=== PATIENT | female | born 1975 | race Caucasian/White ===

== ENCOUNTER 2018-04-27 01:56 | Inpatient (IN) | payer BC ==
[~2018-04-27] VITALS: Ht 170.2 cm; Wt 137.0 kg
--- NOTE | 2018-04-27 03:22 | PHYS DOC ---
Past Medical History Past Medical History: Hypothyroid Past Surgical History: Other Additional Past Surgical Histo: RIGHT ANKLE Alcohol Use: Rarely Drug Use: None Adult General Chief Complaint Chief Complaint: ABDOMINAL PAIN HPI HPI Patient is a 42-year-old female who presents with complaint of midline abdominal pain that started on Friday. Patient states that at first she thought maybe was just gas but pain is progressively gotten worse. Patient states that she started having nausea and vomiting last night. She states that her last bowel movement was last night but states that she had to take a laxative to have a bowel movement. Currently she rates her pain to be a 10 out of 10, stating that this is the worst pain she has ever had. She does indicate that the pain radiates into her back at times. Patient states that pain is a little bit improved when she gets up and bends over at the waist. She states that otherwise nothing else improves the pain. She indicates the pain is worsened with lying down flat and palpating her abdomen. She does indicate that she has had decrease in appetite. Review of Systems Review of Systems Constitutional: Denies fever or chills [] Respiratory: Denies cough or shortness of breath [] Cardiovascular: No additional information not addressed in HPI [] GI: Complains of abdominal pain with nausea and vomiting.[] : Denies dysuria or hematuria [] Musculoskeletal: Complains of intermittent back pain[] All other systems were reviewed and found to be within normal limits, except as documented in this note. Current Medications Current Medications Current Medications Medications (Trade) Dose Ordered Sig/Becky Start Time Stop Time Status Last Admin Dose Admin Fentanyl Citrate (Fentanyl 2ml Vial) 50 mcg 1X ONCE 04/27/18 03:30 04/27/18 03:31 DC 04/27/18 03:26 50 MCG Hydromorphone HCl (Dilaudid) 1 mg 1X ONCE 04/27/18 05:00 04/27/18 05:01 DC 04/27/18 04:45 1 MG Info (CONTRAST GIVEN -- Rx MONITORING) 1 each PRN DAILY PRN 04/27/18 04:45 04/29/18 04:44 Iohexol (Omnipaque 300 Mg/ml) 75 ml 1X ONCE 04/27/18 05:00 04/27/18 05:01 DC 04/27/18 04:52 75 ML Ondansetron HCl (Zofran) 4 mg 1X ONCE 04/27/18 05:00 04/27/18 05:01 DC 04/27/18 04:46 4 MG Prochlorperazine Edisylate (Compazine) 10 mg 1X ONCE 04/27/18 05:45 04/27/18 05:46 UNV Sodium Chloride 1,000 ml @ 1,000 mls/hr Q1H 04/27/18 03:30 04/27/18 04:29 DC 04/27/18 03:26 1,000 MLS/HR Allergies Allergies Allergies Coded Allergies Type Severity Reaction Last Updated Verified Penicillins Allergy Intermediate 04/27/18 Yes Physical Exam Physical Exam Constitutional: Well developed, well nourished, in mild distress. [] HENT: Normocephalic, atraumatic, bilateral external ears normal, oropharynx moist, no oral exudates, nose normal. [] Eyes: PERRLA, EOMI, conjunctiva normal, no discharge. [] Neck: Normal range of motion, no tenderness, supple, no stridor. [] Cardiovascular:Heart rate regular rhythm [] Lungs & Thorax: Bilateral breath sounds clear to auscultation [] Abdomen: Bowel sounds diminished, abdomen soft with diffuse tenderness. Patient does have rebound tenderness. [] Skin: Warm, dry, no erythema, no rash. [] Extremities: No tenderness, no cyanosis, no clubbing, ROM intact, no edema. [] Neurologic: Alert and oriented X 3, normal motor function, normal sensory function, no focal deficits noted. [] Current Patient Data Vital Signs Vital Signs Date Time Temp Pulse Resp B/P (MAP) Pulse Ox O2 Delivery O2 Flow Rate FiO2 04/27/18 04:45 18 98 Room Air 04/27/18 02:31 97.5 94 141/85 (103) 97.5 Lab Values Laboratory Tests Test 04/27/18 02:00 04/27/18 02:15 04/27/18 03:10 Urine Collection Type Unknown Urine Color Yellow Urine Clarity Clear Urine pH 6.0 Urine Specific [place] 1.020 Urine Protein Negative mg/dL (NEG-TRACE) Urine Glucose (UA) Negative mg/dL (NEG) Urine Ketones (Stick) 15 mg/dL (NEG) Urine Blood Large (NEG) Urine Nitrite Negative (NEG) Urine Bilirubin Negative (NEG) Urine Urobilinogen Dipstick 0.2 mg/dL (0.2 mg/dL) Urine Leukocyte Esterase Negative (NEG) Urine RBC 6-10 /HPF (0-2) Urine WBC Occ /HPF (0-4) Urine Squamous Epithelial Cells Few /LPF Urine Bacteria Few /HPF (0-FEW) Urine Mucus Mod /LPF POC Urine HCG, Qualitative Hcg negative (Negative) White Blood Count 12.2 x10^3/uL (4.0-11.0) H Red Blood Count 4.42 x10^6/uL (3.50-5.40) Hemoglobin 13.6 g/dL (12.0-15.5) Hematocrit 38.5 % (36.0-47.0) Mean Corpuscular Volume 87 fL (79-100) Mean Corpuscular Hemoglobin 31 pg (25-35) Mean Corpuscular Hemoglobin Concent 35 g/dL (31-37) Red Cell Distribution Width 12.7 % (11.5-14.5) Platelet Count 234 x10^3/uL (140-400) Neutrophils (%) (Auto) 81 % (31-73) H Lymphocytes (%) (Auto) 11 % (24-48) L Monocytes (%) (Auto) 7 % (0-9) Eosinophils (%) (Auto) 1 % (0-3) Basophils (%) (Auto) 0 % (0-3) Neutrophils # (Auto) 9.9 x10^3uL (1.8-7.7) H Lymphocytes # (Auto) 1.3 x10^3/uL (1.0-4.8) Monocytes # (Auto) 0.9 x10^3/uL (0.0-1.1) Eosinophils # (Auto) 0.1 x10^3/uL (0.0-0.7) Basophils # (Auto) 0.1 x10^3/uL (0.0-0.2) Sodium Level 137 mmol/L (136-145) Potassium Level 3.8 mmol/L (3.5-5.1) Chloride Level 102 mmol/L (98-107) Carbon Dioxide Level 25 mmol/L (21-32) Anion Gap 10 (6-14) Blood Urea Nitrogen 16 mg/dL (7-20) Creatinine 0.8 mg/dL (0.6-1.0) Estimated GFR (Cockcroft-Gault) 78.3 BUN/Creatinine Ratio 20 (6-20) Glucose Level 121 mg/dL (70-99) H Calcium Level 9.5 mg/dL (8.5-10.1) Total Bilirubin 0.5 mg/dL (0.2-1.0) Aspartate Amino Transferase (AST) 17 U/L (15-37) Alanine Aminotransferase (ALT) 22 U/L (14-59) Alkaline Phosphatase 86 U/L (46-116) Total Protein 8.4 g/dL (6.4-8.2) H Albumin 3.6 g/dL (3.4-5.0) Albumin/Globulin Ratio 0.8 (1.0-1.7) L Lipase 118 U/L (73-393) Laboratory Tests 04/27/18 03:10 Laboratory Tests 04/27/18 03:10 EKG EKG [] Radiology/Procedures Radiology/Procedures [] Impressions: CT of the abdomen and pelvis demonstrates findings consistent with acute appendicitis. Course & Med Decision Making Course & Med Decision Making Pertinent Labs and Imaging studies reviewed. (See chart for details) [] Dragon Disclaimer Dragon Disclaimer This electronic medical record was generated, in whole or in part, using a voice recognition dictation system. Departure Departure Impression: Primary Impression: Acute appendicitis Disposition: 09 ADMITTED INPATIENT Admitting Physician: Other Condition: IMPROVED Referrals: UNKNOWN PCP NAME (PCP) Problem Qualifiers Primary Impression: Acute appendicitis Acute appendicitis type: unspecified acute appendicitis type Qualified Codes : K35.80 - Unspecified acute appendicitis RASHARD PATRICK Jr. DO Apr 27, 2018 03:22
[2018-04-27 03:28] LABS: BASO # 0.1 x10^3/uL (0.0-0.2); BASO % 0 % (0-3); EOS # 0.1 x10^3/uL (0.0-0.7); EOS % 1 % (0-3); HEMATOCRIT 38.5 % (36.0-47.0); HEMOGLOBIN 13.6 g/dL (12.0-15.5); LYMPH # 1.3 x10^3/uL (1.0-4.8); LYMPH % 11 % (24-48); MEAN CORPUSCULAR HEMOGLOBIN 31 pg (25-35); MEAN CORPUSCULAR HGB CONC 35 g/dL (31-37); MEAN CORPUSCULAR VOLUME 87 fL (79-100); MONO # 0.9 x10^3/uL (0.0-1.1); MONO % 7 % (0-9); NEUT # 9.9 x10^3uL (1.8-7.7); NEUT % 81 % (31-73); PLATELET COUNT 234 x10^3/uL (140-400); RED BLOOD COUNT 4.42 x10^6/uL (3.50-5.40); RED CELL DISTRIBUTION WIDTH 12.7 % (11.5-14.5); WHITE BLOOD COUNT 12.2 x10^3/uL (4.0-11.0)
[2018-04-27] MEDS ORDERED: ONDANSETRON PF 4 MG/2 ML VIAL. IV ONE ×2 (03:30→05:00)
[2018-04-27] MEDS ORDERED: fentaNYL PF VIAL 100 MCG/2 ML VIAL IV ONE (03:30)
[2018-04-27] MEDS ORDERED: IV NORMAL SALINE 1000ML BAG 1,000 ML IV SCH (03:30)
[2018-04-27 03:32] LABS: BILIRUBIN,URINE NEGATIVE (NEG); CLARITY,URINE CLEAR; COLOR,URINE YELLOW; NITRITE,URINE NEGATIVE (NEG); PROTEIN,URINE NEGATIVE (NEG-TRACE); UROBILINOGEN,URINE 0.2 mg/dL (0.2 mg/dL)
[2018-04-27 03:41] LABS: CALCIUM 9.5 mg/dL (8.5-10.1); CREATININE 0.8 mg/dL (0.6-1.0); GFR 78.3; POTASSIUM 3.8 mmol/L (3.5-5.1)
[2018-04-27 03:47] LABS: ALBUMIN 3.6 g/dL (3.4-5.0); ALBUMIN/GLOBULIN RATIO 0.8 (1.0-1.7); TOTAL BILIRUBIN 0.5 mg/dL (0.2-1.0); TOTAL PROTEIN 8.4 g/dL (6.4-8.2)
[2018-04-27 03:56] LABS: BACTERIA,URINE FEW /HPF (0-FEW); WBC,URINE OCC /HPF (0-4)
[2018-04-27 03:57] LABS: SQUAMOUS EPITHELIAL CELL,UR FEW /LPF
[2018-04-27] MEDS ORDERED: CONTRAST GIVEN. MC PRN (04:45)
[2018-04-27] MEDS ORDERED: HYDROmorphone 2 MG/ML VIAL IV ONE ×2 (05:00→06:15)
[2018-04-27] MEDS ORDERED: IOHEXOL 300 MG/ML 100ML VIAL. IV ONE (05:00)
--- NOTE | 2018-04-27 05:28 | RAD ---
CT SCAN OF THE ABDOMEN AND PELVIS WITH IV CONTRAST. History: 2 days of abdominal pain Comparison:None. Procedure: Contiguous axial images of the abdomen and pelvis were performed after the administration of 75 cc of Omni 300 IV contrast and oral contrast. CT Abdomen with contrast: Findings: Liver: Unremarkable Spleen: Unremarkable Pancreas: Unremarkable Adrenal Glands: Unremarkable Kidneys: Unremarkable There is no mass or lymphadenopathy. There is no free air. There is no free fluid. CT Pelvis with Contrast: Findings: The appendix is dilated to 1.9 cm and has surrounding inflammation. The appendix is seen inferior and medial to the cecum in the right hemipelvis. There is a trace of free fluid. There is a tampon in place. The urinary bladder appears normal. There are multiple small borderline size mesenteric lymph nodes around the appendix. Impression: Acute appendicitis. Mild reactive lymphadenopathy. PQRS Compliance Statement: One or more of the following individualized dose reduction techniques were utilized for this examination: 1. Automated exposure control 2. Adjustment of the mA and/or kV according to patient size 3. Use of iterative reconstruction technique Electronically signed by: Delmer Santana III, MD (04/27/2018 5:24 AM) [facility]
[2018-04-27] MEDS ORDERED: PROCHLORPERAZINE 10 MG/2 ML VIAL. IV ONE ×2 (06:00→23:30)
[2018-04-27] MEDS ORDERED: ONDANSETRON PF 4 MG/2 ML VIAL. IV PRN ×4 (06:00→22:45)
[2018-04-27] MEDS ORDERED: MORPHINE SULFATE 4 MG/ML VIAL. IV PRN ×2 (06:00→14:00)
[2018-04-27] MEDS ORDERED: DOCUSATE SODIUM 100 MG CAPSULE. PO PRN (09:45)
--- NOTE | 2018-04-27 10:01 | PDOC2 ---
ANGIE MILLER [employer] 04/27/18 1001: CONSULT Date of Consult Date of Consult DATE: 04/27/18 TIME: 09:57 Reason for Consult Reason for Consult: appendicitis Referring Physician Referring Physician: ER Identification/Chief Complaint Chief Complaint abdominal pain Source Source: Chart review, Patient History of Present Illness Reason for Visit: Abdominal pain since Friday evening. Associated nausea and chills. Some constipation, however stool yesterday, did not help symptoms. Past Medical History Endocrine: Hypothyroidism Past Surgical History Past Surgical History: No pertinent history Family History Family History: Other (noncontributory to current illness) Social History No ALCOHOL: none Drugs: None Lives: with Family Current Problem List Problem List Problems Medical Problems: (1) Acute appendicitis Status: Acute Current Medications Current Medications Current Medications Sodium Chloride 1,000 ml @ 1,000 mls/hr Q1H IV Last administered on at 03:26; Start 04/27/18 at 03:30; Stop 04/27/18 at 04:29; Status DC Fentanyl Citrate (Fentanyl 2ml Vial) 50 mcg 1X ONCE IV Last administered on at 03:26; Start 04/27/18 at 03:30; Stop 04/27/18 at 03:31; Status DC Ondansetron HCl (Zofran) 4 mg 1X ONCE IV Last administered on 04/27/18at 03:26 ; Start 04/27/18 at 03:30; Stop 04/27/18 at 03:31; Status DC Hydromorphone HCl (Dilaudid) 1 mg 1X ONCE IV Last administered on 04/27/18at 04:45; Start 04/27/18 at 05:00; Stop 04/27/18 at 05:01; Status DC Ondansetron HCl (Zofran) 4 mg 1X ONCE IV Last administered on 04/27/18at 04:46 ; Start 04/27/18 at 05:00; Stop 04/27/18 at 05:01; Status DC Iohexol (Omnipaque 300 Mg/ml) 75 ml 1X ONCE IV Last administered on at 04:52; Start 04/27/18 at 05:00; Stop 04/27/18 at 05:01; Status DC Info (CONTRAST GIVEN -- Rx MONITORING) 1 each PRN DAILY PRN MC SEE COMMENTS; Start 04/27/18 at 04:45; Stop 04/29/18 at 04:44 Prochlorperazine Edisylate (Compazine) 10 mg 1X ONCE IV Last administered on 04/27/18at 06:13; Start 04/27/18 at 06:00; Stop 04/27/18 at 06:01; Status DC Ceftriaxone Sodium 50 ml @ 100 mls/hr 1X ONCE IV Last administered on at 06:14; Start 04/27/18 at 06:00; Stop 04/27/18 at 06:29; Status DC Metronidazole 100 ml @ 100 mls/hr 1X ONCE IV Last administered on 04/27/18at 06:14; Start 04/27/18 at 06:00; Stop 04/27/18 at 06:59; Status DC Ondansetron HCl (Zofran) 4 mg PRN Q8HRS PRN IV NAUSEA/VOMITING 1ST CHOICE Last administered on 04/27/18at 09:14; Start 04/27/18 at 06:00; Stop 04/27/18 at 09 :43; Status DC Morphine Sulfate (Morphine Sulfate) 4 mg PRN Q2HR PRN IV SEVERE PAIN Last administered on 04/27/18at 09:06; Start 04/27/18 at 06:00; Stop 04/27/18 at 09 :43; Status DC Hydromorphone HCl (Dilaudid) 1 mg 1X ONCE IV Last administered on 04/27/18at 06:13; Start 04/27/18 at 06:15; Stop 04/27/18 at 06:16; Status DC Acetaminophen (Tylenol) 650 mg PRN Q6HRS PRN PO FEVER; Start 04/27/18 at 09:45 Ondansetron HCl (Zofran) 4 mg PRN Q6HRS PRN IV NAUSEA/VOMITING; Start at 09:45 Morphine Sulfate (Morphine Sulfate) 2 mg PRN Q2HR PRN IV MODERATE TO SEVERE PAIN; Start 04/27/18 at 09:45 Tramadol HCl (Ultram) 50 mg PRN Q6HRS PRN PO MILD TO MODERATE PAIN; Start at 09:45 Docusate Sodium (Colace) 100 mg PRN DAILY PRN PO CONSTIPATION; Start 04/27/18 at 09:45 Sodium Chloride 1,000 ml @ 100 mls/hr Q10H IV ; Start 04/27/18 at 09:45 Ceftriaxone Sodium 1 gm/ Dextrose 50 ml @ 100 mls/hr Q24H IV ; Start 04/27/18 at 09:45; Status UNV Ceftriaxone Sodium (Rocephin) 1 gm Q24H IVP ; Start 04/28/18 at 08:00 Allergies Allergies: Coded Allergies: Penicillins (Verified Allergy, Intermediate, 04/27/18) ROS General: YES: Chills, Appetite (loss) PSYCHOLOGICAL ROS: No: Anxiety, Depression Eyes: No Blurry vision, No Double vision HEENT: No: Heacaches, Sore Throat Hematological and Lymphatic: No: Bleeding Problems, Blood Clots Respiratory: YES: Shortness of breath; No: Cough Cardiovascular: No Chest Pain, No Palpitations Gastrointestinal: Yes Other (see hpi) Genitourinary: No Dysuria, No Hematuria Musculoskeletal: No Joint Pain, No Muscle Pain Neurological: No Confusion, No Numbness/Tingling Skin: No Pruritus, No Rash Physical Exam General: Alert, Oriented X3, Cooperative, No acute distress HEENT: PERRLA, Mucous membr. moist/pink Lungs: Clear to auscultation, Normal air movement Heart: Regular rate, Normal S1, Normal S2, No murmurs Abdomen: Soft, Other (ND, diffusely tender, worse to RLQ ) Extremities: No clubbing, No cyanosis Skin: No rashes, No breakdown Neuro: Normal gait, Normal speech Psych/Mental Status: Mental status NL, Mood NL MUSCULOSKELETAL: No deformity, No swelling Vitals VITALS Vital Signs Date Time Temp Pulse Resp B/P (MAP) Pulse Ox O2 Delivery O2 Flow Rate FiO2 04/27/18 09:06 16 Room Air 04/27/18 06:35 94 102/57 (72) 96 04/27/18 02:31 97.5 97.5 Labs Labs Laboratory Tests Test 04/27/18 02:00 04/27/18 02:15 04/27/18 03:10 Urine Collection Type Unknown Urine Color Yellow Urine Clarity Clear Urine pH 6.0 Urine Specific [place] 1.020 Urine Protein Negative mg/dL (NEG-TRACE) Urine Glucose (UA) Negative mg/dL (NEG) Urine Ketones (Stick) 15 mg/dL (NEG) Urine Blood Large (NEG) Urine Nitrite Negative (NEG) Urine Bilirubin Negative (NEG) Urine Urobilinogen Dipstick 0.2 mg/dL (0.2 mg/dL) Urine Leukocyte Esterase Negative (NEG) Urine RBC 6-10 /HPF (0-2) Urine WBC Occ /HPF (0-4) Urine Squamous Epithelial Cells Few /LPF Urine Bacteria Few /HPF (0-FEW) Urine Mucus Mod /LPF Bedside Urine HCG, Qualitative Hcg negative (Negative) White Blood Count 12.2 x10^3/uL (4.0-11.0) Red Blood Count 4.42 x10^6/uL (3.50-5.40) Hemoglobin 13.6 g/dL (12.0-15.5) Hematocrit 38.5 % (36.0-47.0) Mean Corpuscular Volume 87 fL (79-100) Mean Corpuscular Hemoglobin 31 pg (25-35) Mean Corpuscular Hemoglobin Concent 35 g/dL (31-37) Red Cell Distribution Width 12.7 % (11.5-14.5) Platelet Count 234 x10^3/uL (140-400) Neutrophils (%) (Auto) 81 % (31-73) Lymphocytes (%) (Auto) 11 % (24-48) Monocytes (%) (Auto) 7 % (0-9) Eosinophils (%) (Auto) 1 % (0-3) Basophils (%) (Auto) 0 % (0-3) Neutrophils # (Auto) 9.9 x10^3uL (1.8-7.7) Lymphocytes # (Auto) 1.3 x10^3/uL (1.0-4.8) Monocytes # (Auto) 0.9 x10^3/uL (0.0-1.1) Eosinophils # (Auto) 0.1 x10^3/uL (0.0-0.7) Basophils # (Auto) 0.1 x10^3/uL (0.0-0.2) Sodium Level 137 mmol/L (136-145) Potassium Level 3.8 mmol/L (3.5-5.1) Chloride Level 102 mmol/L (98-107) Carbon Dioxide Level 25 mmol/L (21-32) Anion Gap 10 (6-14) Blood Urea Nitrogen 16 mg/dL (7-20) Creatinine 0.8 mg/dL (0.6-1.0) Estimated GFR (Cockcroft-Gault) 78.3 BUN/Creatinine Ratio 20 (6-20) Glucose Level 121 mg/dL (70-99) Calcium Level 9.5 mg/dL (8.5-10.1) Total Bilirubin 0.5 mg/dL (0.2-1.0) Aspartate Amino Transf (AST/SGOT) 17 U/L (15-37) Alanine Aminotransferase (ALT/SGPT) 22 U/L (14-59) Alkaline Phosphatase 86 U/L (46-116) Total Protein 8.4 g/dL (6.4-8.2) Albumin 3.6 g/dL (3.4-5.0) Albumin/Globulin Ratio 0.8 (1.0-1.7) Lipase 118 U/L (73-393) Laboratory Tests Test 04/27/18 02:00 04/27/18 02:15 04/27/18 03:10 Urine Collection Type Unknown Urine Color Yellow Urine Clarity Clear Urine pH 6.0 Urine Specific [place] 1.020 Urine Protein Negative mg/dL (NEG-TRACE) Urine Glucose (UA) Negative mg/dL (NEG) Urine Ketones (Stick) 15 mg/dL (NEG) Urine Blood Large (NEG) Urine Nitrite Negative (NEG) Urine Bilirubin Negative (NEG) Urine Urobilinogen Dipstick 0.2 mg/dL (0.2 mg/dL) Urine Leukocyte Esterase Negative (NEG) Urine RBC 6-10 /HPF (0-2) Urine WBC Occ /HPF (0-4) Urine Squamous Epithelial Cells Few /LPF Urine Bacteria Few /HPF (0-FEW) Urine Mucus Mod /LPF Bedside Urine HCG, Qualitative Hcg negative (Negative) White Blood Count 12.2 x10^3/uL (4.0-11.0) Red Blood Count 4.42 x10^6/uL (3.50-5.40) Hemoglobin 13.6 g/dL (12.0-15.5) Hematocrit 38.5 % (36.0-47.0) Mean Corpuscular Volume 87 fL (79-100) Mean Corpuscular Hemoglobin 31 pg (25-35) Mean Corpuscular Hemoglobin Concent 35 g/dL (31-37) Red Cell Distribution Width 12.7 % (11.5-14.5) Platelet Count 234 x10^3/uL (140-400) Neutrophils (%) (Auto) 81 % (31-73) Lymphocytes (%) (Auto) 11 % (24-48) Monocytes (%) (Auto) 7 % (0-9) Eosinophils (%) (Auto) 1 % (0-3) Basophils (%) (Auto) 0 % (0-3) Neutrophils # (Auto) 9.9 x10^3uL (1.8-7.7) Lymphocytes # (Auto) 1.3 x10^3/uL (1.0-4.8) Monocytes # (Auto) 0.9 x10^3/uL (0.0-1.1) Eosinophils # (Auto) 0.1 x10^3/uL (0.0-0.7) Basophils # (Auto) 0.1 x10^3/uL (0.0-0.2) Sodium Level 137 mmol/L (136-145) Potassium Level 3.8 mmol/L (3.5-5.1) Chloride Level 102 mmol/L (98-107) Carbon Dioxide Level 25 mmol/L (21-32) Anion Gap 10 (6-14) Blood Urea Nitrogen 16 mg/dL (7-20) Creatinine 0.8 mg/dL (0.6-1.0) Estimated GFR (Cockcroft-Gault) 78.3 BUN/Creatinine Ratio 20 (6-20) Glucose Level 121 mg/dL (70-99) Calcium Level 9.5 mg/dL (8.5-10.1) Total Bilirubin 0.5 mg/dL (0.2-1.0) Aspartate Amino Transf (AST/SGOT) 17 U/L (15-37) Alanine Aminotransferase (ALT/SGPT) 22 U/L (14-59) Alkaline Phosphatase 86 U/L (46-116) Total Protein 8.4 g/dL (6.4-8.2) Albumin 3.6 g/dL (3.4-5.0) Albumin/Globulin Ratio 0.8 (1.0-1.7) Lipase 118 U/L (73-393) Assessment/Plan Assessment/Plan acute appendicitis plan OR today LUCIANA HOPKINS MD 04/27/181950: CONSULT Assessment/Plan Assessment/Plan Pt seen and examined. Agree with Ms. Miller's note Pt feels somewhat better since admission secondary to abx and pain meds abd TTP RLQ, positive rovsing's sign TO OR for laparoscopic appendectomy R/R/B/A d/w pt and pt's supportive family. Risks, including, but not limited to: bleeding, infection, damage to surrounding structures, risk of anesthesia, risk of open They appear to understand, their questions are answered and they elect to proceed. Thanks for consult! ANGIE MILLER APRN Apr 27, 2018 10:01 LUCIANA OHPKINS MD Apr 27, 2018 19:51
[2018-04-27 11:05] VITALS: BP 127/77
[2018-04-27] MEDS: MORPHINE SULFATE 2 MG/ML VIAL. IV PRN ×4 (11:45→22:22)
[2018-04-27] MEDS: IV NORMAL SALINE 1000ML BAG 1,000 ML IV SCH ×2 (11:48→19:45)
[2018-04-27] MEDS ORDERED: LEVO200T PO (12:04)
[2018-04-27] MEDS ORDERED: FEXO180T81 PO (12:04)
[2018-04-27] MEDS ORDERED: PROCHLORPERAZINE 10 MG/2 ML VIAL. IV PRN ×2 (13:15→19:30)
[2018-04-27] MEDS: fentaNYL PF VIAL 100 MCG/2 ML VIAL IV PRN ×5 (13:17→23:29)
[2018-04-27] MEDS ORDERED: CETIRIZINE HCL 10 MG TABLET. PO PRN (13:49)
--- NOTE | 2018-04-27 13:53 | PDOC1 ---
History and Physical Date of Admission Date of Admission 04/27/18 Identification/Chief Complaint Chief Complaint abd pain Source Source: Chart review, Patient History of Present Illness History of Present Illness HPI HPI Patient is a 42-year-old female who presents with complaint of midline abdominal pain that started on Friday. Pt never had similar pain before. Pt started to have lower abd pain on Friday, felt it was "gas". The pain in intermittent, severe, 10/10, radiating to back, with N/V yesterday, vomited green liquid. BM normal to her. Pt came to ER since the pain was getting worse. CT showed acute appendicities. no fever, chills, cough, sob. Past Medical History Endocrine: Hypothyroidism Past Surgical History Past Surgical History: No pertinent history Family History Family History: Hypertension, Other (noncontributory to current illness) Social History Smoke: No ALCOHOL: none Drugs: None Current Problem List Problem List Problems Medical Problems: (1) Acute appendicitis Status: Acute Current Medications Current Medications Current Medications Medications (Trade) Dose Ordered Sig/Becky Start Time Stop Time Status Last Admin Dose Admin Acetaminophen (Tylenol) 650 mg PRN Q6HRS PRN 04/27/18 09:45 Ceftriaxone Sodium 1 gm/ Dextrose 50 ml @ 100 mls/hr Q24H 04/27/18 09:45 UNV Ceftriaxone Sodium (Rocephin) 1 gm Q24H 04/28/18 08:00 Docusate Sodium (Colace) 100 mg PRN DAILY PRN 04/27/18 09:45 Fentanyl Citrate (Fentanyl 2ml Vial) 50 mcg PRN Q2HR PRN 04/27/18 13:15 04/27/18 13:17 50 MCG Hydromorphone HCl (Dilaudid) 1 mg 1X ONCE 04/27/18 06:15 04/27/18 06:16 DC 04/27/18 06:13 1 MG Info (CONTRAST GIVEN -- Rx MONITORING) 1 each PRN DAILY PRN 04/27/18 04:45 04/29/18 04:44 Iohexol (Omnipaque 300 Mg/ml) 75 ml 1X ONCE 04/27/18 05:00 04/27/18 05:01 DC 04/27/18 04:52 75 ML Metronidazole 100 ml @ 100 mls/hr Q8HRS 04/27/18 14:00 Morphine Sulfate (Morphine Sulfate) 2 mg PRN Q2HR PRN 04/27/18 09:45 04/27/18 11:45 2 MG Ondansetron HCl (Zofran) 4 mg PRN Q6HRS PRN 04/27/18 09:45 Prochlorperazine Edisylate (Compazine) 10 mg PRN Q6HRS PRN 04/27/18 13:15 04/27/18 13:17 10 MG Sodium Chloride 1,000 ml @ 100 mls/hr Q10H 04/27/18 09:45 04/27/18 11:48 100 MLS/HR Tramadol HCl (Ultram) 50 mg PRN Q6HRS PRN 04/27/18 09:45 Allergies Allergies Allergies Coded Allergies Type Severity Reaction Last Updated Verified Penicillins Allergy Intermediate 04/27/18 Yes ROS Review of System CONSTITUTIONAL: No fever or chills EYES: No recent changes SKIN: No rash or itching CARDIOVASCULAR: No chest pain, syncope, palpitations, or edema RESPIRATORY: No SOB or cough GASTROINTESTINAL: No nausea, vomiting or abdominal pain NEUROLOGICAL: No headaches or weakness ENDOCRINE: No cold or heat intolerance GENITOURINARY: No urgency or frequency of urination MUSCULOSKELETAL: No back pain or joint pain LYMPHATICS: No enlarged lymph nodes PSYCHIATRIC: No anxiety or depression Physical Exam Physical Exam GEN.: in pain. Alert and oriented. HEENT: Head is normocephalic, atraumatic NECK: Supple. LUNGS: Clear to auscultation. HEART: RRR, S1, S2 present. Peripheral pulses intact ABDOMEN: Soft, Positive bowel sounds. diffuse abd tenderness, mainly in middle lower abd , no guarding or rebound. EXTREMITIES: Without any cyanosis. NEUROLOGIC: Normal speech, normal tone PSYCHIATRIC: Normal affect, normal mood. SKIN: No ulcerations Vitals Vitals Vital Signs Date Time Temp Pulse Resp B/P (MAP) Pulse Ox O2 Delivery O2 Flow Rate FiO2 04/27/18 13:17 16 Room Air 04/27/18 11:05 97.5 89 127/77 (94) 95 2.0 97.5 Labs Labs Laboratory Tests Test 04/27/18 02:00 04/27/18 02:15 04/27/18 03:10 Urine Collection Type Unknown Urine Color Yellow Urine Clarity Clear Urine pH 6.0 Urine Specific [place] 1.020 Urine Protein Negative mg/dL (NEG-TRACE) Urine Glucose (UA) Negative mg/dL (NEG) Urine Ketones (Stick) 15 mg/dL (NEG) Urine Blood Large (NEG) Urine Nitrite Negative (NEG) Urine Bilirubin Negative (NEG) Urine Urobilinogen Dipstick 0.2 mg/dL (0.2 mg/dL) Urine Leukocyte Esterase Negative (NEG) Urine RBC 6-10 /HPF (0-2) Urine WBC Occ /HPF (0-4) Urine Squamous Epithelial Cells Few /LPF Urine Bacteria Few /HPF (0-FEW) Urine Mucus Mod /LPF Bedside Urine HCG, Qualitative Hcg negative (Negative) White Blood Count 12.2 x10^3/uL (4.0-11.0) Red Blood Count 4.42 x10^6/uL (3.50-5.40) Hemoglobin 13.6 g/dL (12.0-15.5) Hematocrit 38.5 % (36.0-47.0) Mean Corpuscular Volume 87 fL (79-100) Mean Corpuscular Hemoglobin 31 pg (25-35) Mean Corpuscular Hemoglobin Concent 35 g/dL (31-37) Red Cell Distribution Width 12.7 % (11.5-14.5) Platelet Count 234 x10^3/uL (140-400) Neutrophils (%) (Auto) 81 % (31-73) Lymphocytes (%) (Auto) 11 % (24-48) Monocytes (%) (Auto) 7 % (0-9) Eosinophils (%) (Auto) 1 % (0-3) Basophils (%) (Auto) 0 % (0-3) Neutrophils # (Auto) 9.9 x10^3uL (1.8-7.7) Lymphocytes # (Auto) 1.3 x10^3/uL (1.0-4.8) Monocytes # (Auto) 0.9 x10^3/uL (0.0-1.1) Eosinophils # (Auto) 0.1 x10^3/uL (0.0-0.7) Basophils # (Auto) 0.1 x10^3/uL (0.0-0.2) Sodium Level 137 mmol/L (136-145) Potassium Level 3.8 mmol/L (3.5-5.1) Chloride Level 102 mmol/L (98-107) Carbon Dioxide Level 25 mmol/L (21-32) Anion Gap 10 (6-14) Blood Urea Nitrogen 16 mg/dL (7-20) Creatinine 0.8 mg/dL (0.6-1.0) Estimated GFR (Cockcroft-Gault) 78.3 BUN/Creatinine Ratio 20 (6-20) Glucose Level 121 mg/dL (70-99) Calcium Level 9.5 mg/dL (8.5-10.1) Total Bilirubin 0.5 mg/dL (0.2-1.0) Aspartate Amino Transf (AST/SGOT) 17 U/L (15-37) Alanine Aminotransferase (ALT/SGPT) 22 U/L (14-59) Alkaline Phosphatase 86 U/L (46-116) Total Protein 8.4 g/dL (6.4-8.2) Albumin 3.6 g/dL (3.4-5.0) Albumin/Globulin Ratio 0.8 (1.0-1.7) Lipase 118 U/L (73-393) Laboratory Tests Test 04/27/18 02:00 04/27/18 02:15 04/27/18 03:10 Urine Collection Type Unknown Urine Color Yellow Urine Clarity Clear Urine pH 6.0 Urine Specific [place] 1.020 Urine Protein Negative mg/dL (NEG-TRACE) Urine Glucose (UA) Negative mg/dL (NEG) Urine Ketones (Stick) 15 mg/dL (NEG) Urine Blood Large (NEG) Urine Nitrite Negative (NEG) Urine Bilirubin Negative (NEG) Urine Urobilinogen Dipstick 0.2 mg/dL (0.2 mg/dL) Urine Leukocyte Esterase Negative (NEG) Urine RBC 6-10 /HPF (0-2) Urine WBC Occ /HPF (0-4) Urine Squamous Epithelial Cells Few /LPF Urine Bacteria Few /HPF (0-FEW) Urine Mucus Mod /LPF Bedside Urine HCG, Qualitative Hcg negative (Negative) White Blood Count 12.2 x10^3/uL (4.0-11.0) Red Blood Count 4.42 x10^6/uL (3.50-5.40) Hemoglobin 13.6 g/dL (12.0-15.5) Hematocrit 38.5 % (36.0-47.0) Mean Corpuscular Volume 87 fL (79-100) Mean Corpuscular Hemoglobin 31 pg (25-35) Mean Corpuscular Hemoglobin Concent 35 g/dL (31-37) Red Cell Distribution Width 12.7 % (11.5-14.5) Platelet Count 234 x10^3/uL (140-400) Neutrophils (%) (Auto) 81 % (31-73) Lymphocytes (%) (Auto) 11 % (24-48) Monocytes (%) (Auto) 7 % (0-9) Eosinophils (%) (Auto) 1 % (0-3) Basophils (%) (Auto) 0 % (0-3) Neutrophils # (Auto) 9.9 x10^3uL (1.8-7.7) Lymphocytes # (Auto) 1.3 x10^3/uL (1.0-4.8) Monocytes # (Auto) 0.9 x10^3/uL (0.0-1.1) Eosinophils # (Auto) 0.1 x10^3/uL (0.0-0.7) Basophils # (Auto) 0.1 x10^3/uL (0.0-0.2) Sodium Level 137 mmol/L (136-145) Potassium Level 3.8 mmol/L (3.5-5.1) Chloride Level 102 mmol/L (98-107) Carbon Dioxide Level 25 mmol/L (21-32) Anion Gap 10 (6-14) Blood Urea Nitrogen 16 mg/dL (7-20) Creatinine 0.8 mg/dL (0.6-1.0) Estimated GFR (Cockcroft-Gault) 78.3 BUN/Creatinine Ratio 20 (6-20) Glucose Level 121 mg/dL (70-99) Calcium Level 9.5 mg/dL (8.5-10.1) Total Bilirubin 0.5 mg/dL (0.2-1.0) Aspartate Amino Transf (AST/SGOT) 17 U/L (15-37) Alanine Aminotransferase (ALT/SGPT) 22 U/L (14-59) Alkaline Phosphatase 86 U/L (46-116) Total Protein 8.4 g/dL (6.4-8.2) Albumin 3.6 g/dL (3.4-5.0) Albumin/Globulin Ratio 0.8 (1.0-1.7) Lipase 118 U/L (73-393) VTE Prophylaxis Ordered VTE Prophylaxis Devices: No VTE Pharmacological Prophylaxi: No Assessment/Plan Assessment/Plan abd pain with acute apendicitis SIRS hypothyroidism morbid obesity plan: ivf, npo, fu with sx sx today pain control no dvt ppx for now cont home meds tmr when takes po add ceftriaxone, flagyl told pt likely lap appendectomy, hope go home tmr. pt wants go home today. BONITA MCCOLLUM MD Apr 27, 2018 13:53
[2018-04-27] MEDS ORDERED: HYDROcodone/APAP 5/325MG 1 TAB TABLET PO PRN (14:00)
[2018-04-27] MEDS ORDERED: fentaNYL PF VIAL 100 MCG/2 ML VIAL ONE ×2 (14:25→19:47)
[2018-04-27] MEDS ORDERED: LIDOCAINE 2% PF Vial for OR 5 ML VIAL. ONE (14:25)
[2018-04-27] MEDS ORDERED: MIDAZOLAM HCL/PF 2 MG/2 ML VIAL. ONE (14:25)
[2018-04-27] MEDS ORDERED: PROPOFOL 20 ML IV ONE (14:25)
[2018-04-27] MEDS ORDERED: ROCURONIUM 50 MG/5 ML VIAL. ONE (14:25)
[2018-04-27] MEDS ORDERED: DEXAMETHASONE SOD PHOS 20 MG/5 ML VIAL. ONE (14:27)
[2018-04-27] MEDS ORDERED: ONDANSETRON PF 4 MG/2 ML VIAL. ONE ×2 (14:27→19:50)
[2018-04-27 15:00] VITALS: BP 141/75
[2018-04-27] MEDS ORDERED: BUPIVAC MPF-EPI 0.5%-1:200000 30 ML VIAL. ONE (18:44)
[2018-04-27 19:15] VITALS: BP 116/60
[2018-04-27] MEDS ORDERED: IV RINGERS,LACTATED 1000ML 1,000 ML IV SCH (19:17)
[2018-04-27] MEDS ORDERED: LIDOCAINE 1% PF 2 ML VIAL. ID PRN (19:30)
[2018-04-27] MEDS ORDERED: MORPHINE SULFATE 2 MG/ML VIAL. IV PRN (19:30)
[2018-04-27] MEDS ORDERED: HYDROmorphone 2 MG/ML VIAL IV PRN (19:30)
[2018-04-27] MEDS ORDERED: fentaNYL PF VIAL 100 MCG/2 ML VIAL IV PRN (19:30)
[2018-04-27] MEDS ORDERED: SEVOFLURANE 31 TO 60 MINUTES. IH ONE (19:50)
[2018-04-27] MEDS ORDERED: KETOROLAC 30 MG/ML INJ FOR OR. INJ ONE (19:50)
[2018-04-27] MEDS ORDERED: PHENYLEPHRINE in 0.9% NACL PF 1 MG/10 ML SYRINGE. IV ONE (20:42)
[2018-04-27] MEDS ORDERED: METHYLENE BLUE 1% 10 ML VIAL. ONE (20:59)
[2018-04-27] MEDS ORDERED: NEOSTIGMINE METHYLSULFATE 5 MG/5 ML SYRINGE. ONE (21:17)
[2018-04-27] MEDS ORDERED: GLYCOPYRROLATE 1 MG/5 ML VIAL. ONE (21:17)
[2018-04-27] MEDS ORDERED: 0.9 % SODIUM CHLORIDE 10 ML DISP.SYRIN. IV PRN (22:45)
--- NOTE | 2018-04-27 22:50 | PDOC4 ---
OPERATIVE NOTE Date: Date: Apr 27, 2018 Pre-Op Diagnosis: Appendicitis Post-Op Diagnosis: Appendicitis with perforation and localized peritonitis Procedure Performed: Laparoscopic appendectomy Surgeon: Marino Hopkins Anesthesia Type: GETA plus local Blood Loss: 25 Specimans Obtained: appendix Findings: retrocecal appendicitis with contained perforation Complications: none Operative Note: After obtaining informed consent, patient was taken to OR, induced under GETA and prepped in the usual fashion. 5 mm ports placed LLQ and RLQ, 12 port placed supraumbilical, all under laparoscopic guidance. Abdominal cavity was explored. Patient is morbidly obese making the procedure difficult throughout. Liver and gallbladder grossly normal in appearance. No evidence of trocar injury. Localized peritonitis noted in RLQ. Loops of small bowel bluntly dissected out. Portion of mesentery of terminal ileum caught up in process and dissected with defect, but completely viable overlying small bowel. Appendix ultimately identified to be retrocecal in nature. Bluntly dissected out. High riding cecum. SHAHNAZ used to divide appendix at level of cecum. Perforation, contained, noted proximal appendix, but away from the staple margin. Mesoappendix carefully dissected out. Mesoappendix skeletonized at level of appendix and clips used to control it. Appendix placed in endocatch bag, delivered and sent to pathology for evaluation. Copious irrigation. No evidence of bleeding or other pathology noted. Staple lines intact. Given retrocecal nature and extensive inflammatory changes, the ureter on the right needed to be evaluated to assure no injury. Methylene blue given, but given dehydration and poor urine output overall, this was not effective. As such, the retroperitoneum was opened and the ureter was identified and confirmed to be without injury. It was identified by Irena's sign (spasm with palpation). It was noted that the plane behind the cecum did remain anterior to the retroperitoneum. Ports removed without bleeding. Fascia repaired with 0 vicryl. Skin repaired with 4 0 monocryl. Dressing applied. Patient tolerated procedure well and sent to PACU in stable condition. All counts correct. Wound class is dirty, 4. LUCIANA HOPKINS MD Apr 27, 2018 22:50
[2018-04-27] MEDS: POTASSIUM CL 20MEQ-0.45% NACL 1,000 ML IV SCH (23:00)
[2018-04-27 23:45] VITALS: BP 99/66
[2018-04-28] VITALS (13 sets, daily range): BP systolic 88–146; BP diastolic 44–68
[2018-04-28] MEDS: fentaNYL PF VIAL 100 MCG/2 ML VIAL IV PRN (01:16)
[2018-04-28 05:21] LABS: BASO % 0 % (0-3); EOS % 0 % (0-3); HEMATOCRIT 35.1 % (36.0-47.0); HEMOGLOBIN 12.1 g/dL (12.0-15.5); LYMPH # 0.5 x10^3/uL (1.0-4.8); LYMPH % 4 % (24-48); MEAN CORPUSCULAR HEMOGLOBIN 31 pg (25-35); MEAN CORPUSCULAR HGB CONC 35 g/dL (31-37); MEAN CORPUSCULAR VOLUME 89 fL (79-100); MONO # 0.4 x10^3/uL (0.0-1.1); MONO % 3 % (0-9); NEUT # 12.5 x10^3uL (1.8-7.7); NEUT % 94 % (31-73); PLATELET COUNT 201 x10^3/uL (140-400); RED BLOOD COUNT 3.96 x10^6/uL (3.50-5.40); RED CELL DISTRIBUTION WIDTH 12.5 % (11.5-14.5); WHITE BLOOD COUNT 13.4 x10^3/uL (4.0-11.0)
[2018-04-28] MEDS ORDERED: LEVOTHYROXINE 112 MCG TABLET PO SCH (06:00)
[2018-04-28] MEDS ORDERED: LEVOTHYROXINE 100 MCG TABLET PO SCH (06:00)
[2018-04-28 06:13] LABS: CALCIUM 8.3 mg/dL (8.5-10.1); CREATININE 0.8 mg/dL (0.6-1.0); GFR 78.3; POTASSIUM 3.6 mmol/L (3.5-5.1)
[2018-04-28] MEDS: HYDROcodone/APAP 5/325MG 1 TAB TABLET PO PRN ×3 (06:38→18:21)
[2018-04-28] MEDS ORDERED: LEVOTHYROXINE SODIUM PO SCH (07:30)
[2018-04-28] MEDS: DOCUSATE SODIUM 100 MG CAPSULE. PO SCH ×2 (09:00→21:47)
[2018-04-28] MEDS: POTASSIUM CL 20MEQ-0.45% NACL 1,000 ML IV SCH ×2 (09:19→18:21)
[2018-04-28] MEDS: ENOXAPARIN 40 MG/0.4 ML SYRINGE. SQ SCH (09:20)
[2018-04-28] MEDS: cefTRIAXone IV Push 1 GM VIAL. IVP SCH (09:20)
[2018-04-28] MEDS: ACETAMINOPHEN 325 MG TABLET. PO PRN (09:33)
--- NOTE | 2018-04-28 10:16 | PDOC ---
SURGICAL PROGRESS NOTE Subjective feels much better no nausea or emesis + urination and ambulating Vital Signs Vital Signs Date Time Temp Pulse Resp B/P (MAP) Pulse Ox O2 Delivery O2 Flow Rate FiO2 04/28/18 07:00 97.9 72 18 108/49 (68) 93 Nasal Cannula 4.0 97.9 I&O Intake and Output 04/28/18 07:00 Intake Total 100 ml Output Total 0 ml Balance 100 ml Intake Oral 100 ml Output Urine Total 0 ml # Voids 3 General: Alert, Oriented X3, Cooperative, No acute distress Abdomen: Soft, Other (dressings dry) Labs Laboratory Tests Test 04/27/18 02:00 04/27/18 02:15 04/27/18 03:10 04/28/18 03:50 Urine Collection Type Unknown Urine Color Yellow Urine Clarity Clear Urine pH 6.0 Urine Specific [place] 1.020 Urine Protein Negative mg/dL (NEG-TRACE) Urine Glucose (UA) Negative mg/dL (NEG) Urine Ketones (Stick) 15 mg/dL (NEG) Urine Blood Large (NEG) Urine Nitrite Negative (NEG) Urine Bilirubin Negative (NEG) Urine Urobilinogen Dipstick 0.2 mg/dL (0.2 mg/dL) Urine Leukocyte Esterase Negative (NEG) Urine RBC 6-10 /HPF (0-2) Urine WBC Occ /HPF (0-4) Urine Squamous Epithelial Cells Few /LPF Urine Bacteria Few /HPF (0-FEW) Urine Mucus Mod /LPF Bedside Urine HCG, Qualitative Hcg negative (Negative) White Blood Count 12.2 x10^3/uL (4.0-11.0) 13.4 x10^3/uL (4.0-11.0) Red Blood Count 4.42 x10^6/uL (3.50-5.40) 3.96 x10^6/uL (3.50-5.40) Hemoglobin 13.6 g/dL (12.0-15.5) 12.1 g/dL (12.0-15.5) Hematocrit 38.5 % (36.0-47.0) 35.1 % (36.0-47.0) Mean Corpuscular Volume 87 fL (79-100) 89 fL (79-100) Mean Corpuscular Hemoglobin 31 pg (25-35) 31 pg (25-35) Mean Corpuscular Hemoglobin Concent 35 g/dL (31-37) 35 g/dL (31-37) Red Cell Distribution Width 12.7 % (11.5-14.5) 12.5 % (11.5-14.5) Platelet Count 234 x10^3/uL (140-400) 201 x10^3/uL (140-400) Neutrophils (%) (Auto) 81 % (31-73) 94 % (31-73) Lymphocytes (%) (Auto) 11 % (24-48) 4 % (24-48) Monocytes (%) (Auto) 7 % (0-9) 3 % (0-9) Eosinophils (%) (Auto) 1 % (0-3) 0 % (0-3) Basophils (%) (Auto) 0 % (0-3) 0 % (0-3) Neutrophils # (Auto) 9.9 x10^3uL (1.8-7.7) 12.5 x10^3uL (1.8-7.7) Lymphocytes # (Auto) 1.3 x10^3/uL (1.0-4.8) 0.5 x10^3/uL (1.0-4.8) Monocytes # (Auto) 0.9 x10^3/uL (0.0-1.1) 0.4 x10^3/uL (0.0-1.1) Eosinophils # (Auto) 0.1 x10^3/uL (0.0-0.7) 0.0 x10^3/uL (0.0-0.7) Basophils # (Auto) 0.1 x10^3/uL (0.0-0.2) 0.0 x10^3/uL (0.0-0.2) Sodium Level 137 mmol/L (136-145) 138 mmol/L (136-145) Potassium Level 3.8 mmol/L (3.5-5.1) 3.6 mmol/L (3.5-5.1) Chloride Level 102 mmol/L (98-107) 103 mmol/L (98-107) Carbon Dioxide Level 25 mmol/L (21-32) 24 mmol/L (21-32) Anion Gap 10 (6-14) 11 (6-14) Blood Urea Nitrogen 16 mg/dL (7-20) 11 mg/dL (7-20) Creatinine 0.8 mg/dL (0.6-1.0) 0.8 mg/dL (0.6-1.0) Estimated GFR (Cockcroft-Gault) 78.3 78.3 BUN/Creatinine Ratio 20 (6-20) Glucose Level 121 mg/dL (70-99) 132 mg/dL (70-99) Calcium Level 9.5 mg/dL (8.5-10.1) 8.3 mg/dL (8.5-10.1) Total Bilirubin 0.5 mg/dL (0.2-1.0) Aspartate Amino Transf (AST/SGOT) 17 U/L (15-37) Alanine Aminotransferase (ALT/SGPT) 22 U/L (14-59) Alkaline Phosphatase 86 U/L (46-116) Total Protein 8.4 g/dL (6.4-8.2) Albumin 3.6 g/dL (3.4-5.0) Albumin/Globulin Ratio 0.8 (1.0-1.7) Lipase 118 U/L (73-393) Laboratory Tests Test 04/28/18 03:50 White Blood Count 13.4 x10^3/uL (4.0-11.0) Red Blood Count 3.96 x10^6/uL (3.50-5.40) Hemoglobin 12.1 g/dL (12.0-15.5) Hematocrit 35.1 % (36.0-47.0) Mean Corpuscular Volume 89 fL (79-100) Mean Corpuscular Hemoglobin 31 pg (25-35) Mean Corpuscular Hemoglobin Concent 35 g/dL (31-37) Red Cell Distribution Width 12.5 % (11.5-14.5) Platelet Count 201 x10^3/uL (140-400) Neutrophils (%) (Auto) 94 % (31-73) Lymphocytes (%) (Auto) 4 % (24-48) Monocytes (%) (Auto) 3 % (0-9) Eosinophils (%) (Auto) 0 % (0-3) Basophils (%) (Auto) 0 % (0-3) Neutrophils # (Auto) 12.5 x10^3uL (1.8-7.7) Lymphocytes # (Auto) 0.5 x10^3/uL (1.0-4.8) Monocytes # (Auto) 0.4 x10^3/uL (0.0-1.1) Eosinophils # (Auto) 0.0 x10^3/uL (0.0-0.7) Basophils # (Auto) 0.0 x10^3/uL (0.0-0.2) Sodium Level 138 mmol/L (136-145) Potassium Level 3.6 mmol/L (3.5-5.1) Chloride Level 103 mmol/L (98-107) Carbon Dioxide Level 24 mmol/L (21-32) Anion Gap 11 (6-14) Blood Urea Nitrogen 11 mg/dL (7-20) Creatinine 0.8 mg/dL (0.6-1.0) Estimated GFR (Cockcroft-Gault) 78.3 Glucose Level 132 mg/dL (70-99) Calcium Level 8.3 mg/dL (8.5-10.1) Problem List Problems Medical Problems: (1) Acute appendicitis Status: Acute Assessment/Plan s/p lap appy, perf abx x 1 more day, if continues to do well home tomorrow ANGIE MILLER APRN Apr 28, 2018 10:16
--- NOTE | 2018-04-28 12:46 | PDOC ---
PROGRESS NOTES Chief Complaint Chief Complaint abd pain with acute apendicitis s/p lap appendectomy for perforation local peritonitis sepsis hypothyroidism morbid obesity plan: ivf, fu with sx npo as per sx pain control dvt ppx cont home meds tmr when takes po add ceftriaxone, flagyl labs tmr, dc soon. History of Present Illness History of Present Illness ROS: no fever, chills, sob or chest pain wbc 13 from 12 no n/v abd pain better has flatus, no BM post op Vitals Vitals Vital Signs Date Time Temp Pulse Resp B/P (MAP) Pulse Ox O2 Delivery O2 Flow Rate FiO2 04/28/18 11:00 98.2 73 18 112/66 (81) 93 Nasal Cannula 4.0 98.2 Physical Exam Physical Exam clean sx wound General: Alert, Oriented X3, Cooperative, No acute distress Heart: Regular rate, Normal S1, Normal S2, No murmurs Lungs: Clear Abdomen: Soft, Other (dressings dry, deminished bs, mild tenderness) Extremities: No clubbing, No cyanosis Skin: No rashes, No breakdown Labs LABS Laboratory Tests Test 04/28/18 03:50 White Blood Count 13.4 x10^3/uL (4.0-11.0) Red Blood Count 3.96 x10^6/uL (3.50-5.40) Hemoglobin 12.1 g/dL (12.0-15.5) Hematocrit 35.1 % (36.0-47.0) Mean Corpuscular Volume 89 fL (79-100) Mean Corpuscular Hemoglobin 31 pg (25-35) Mean Corpuscular Hemoglobin Concent 35 g/dL (31-37) Red Cell Distribution Width 12.5 % (11.5-14.5) Platelet Count 201 x10^3/uL (140-400) Neutrophils (%) (Auto) 94 % (31-73) Lymphocytes (%) (Auto) 4 % (24-48) Monocytes (%) (Auto) 3 % (0-9) Eosinophils (%) (Auto) 0 % (0-3) Basophils (%) (Auto) 0 % (0-3) Neutrophils # (Auto) 12.5 x10^3uL (1.8-7.7) Lymphocytes # (Auto) 0.5 x10^3/uL (1.0-4.8) Monocytes # (Auto) 0.4 x10^3/uL (0.0-1.1) Eosinophils # (Auto) 0.0 x10^3/uL (0.0-0.7) Basophils # (Auto) 0.0 x10^3/uL (0.0-0.2) Sodium Level 138 mmol/L (136-145) Potassium Level 3.6 mmol/L (3.5-5.1) Chloride Level 103 mmol/L (98-107) Carbon Dioxide Level 24 mmol/L (21-32) Anion Gap 11 (6-14) Blood Urea Nitrogen 11 mg/dL (7-20) Creatinine 0.8 mg/dL (0.6-1.0) Estimated GFR (Cockcroft-Gault) 78.3 Glucose Level 132 mg/dL (70-99) Calcium Level 8.3 mg/dL (8.5-10.1) Assessment and Plan Assessmemt and Plan Problems Medical Problems: (1) Acute appendicitis Status: Acute Comment Review of Relevant I have reviewed the following items devora (where applicable) has been applied. Labs Laboratory Tests Test 04/27/18 02:00 04/27/18 02:15 04/27/18 03:10 04/28/18 03:50 Urine Collection Type Unknown Urine Color Yellow Urine Clarity Clear Urine pH 6.0 Urine Specific [place] 1.020 Urine Protein Negative mg/dL (NEG-TRACE) Urine Glucose (UA) Negative mg/dL (NEG) Urine Ketones (Stick) 15 mg/dL (NEG) Urine Blood Large (NEG) Urine Nitrite Negative (NEG) Urine Bilirubin Negative (NEG) Urine Urobilinogen Dipstick 0.2 mg/dL (0.2 mg/dL) Urine Leukocyte Esterase Negative (NEG) Urine RBC 6-10 /HPF (0-2) Urine WBC Occ /HPF (0-4) Urine Squamous Epithelial Cells Few /LPF Urine Bacteria Few /HPF (0-FEW) Urine Mucus Mod /LPF Bedside Urine HCG, Qualitative Hcg negative (Negative) White Blood Count 12.2 x10^3/uL (4.0-11.0) 13.4 x10^3/uL (4.0-11.0) Red Blood Count 4.42 x10^6/uL (3.50-5.40) 3.96 x10^6/uL (3.50-5.40) Hemoglobin 13.6 g/dL (12.0-15.5) 12.1 g/dL (12.0-15.5) Hematocrit 38.5 % (36.0-47.0) 35.1 % (36.0-47.0) Mean Corpuscular Volume 87 fL (79-100) 89 fL (79-100) Mean Corpuscular Hemoglobin 31 pg (25-35) 31 pg (25-35) Mean Corpuscular Hemoglobin Concent 35 g/dL (31-37) 35 g/dL (31-37) Red Cell Distribution Width 12.7 % (11.5-14.5) 12.5 % (11.5-14.5) Platelet Count 234 x10^3/uL (140-400) 201 x10^3/uL (140-400) Neutrophils (%) (Auto) 81 % (31-73) 94 % (31-73) Lymphocytes (%) (Auto) 11 % (24-48) 4 % (24-48) Monocytes (%) (Auto) 7 % (0-9) 3 % (0-9) Eosinophils (%) (Auto) 1 % (0-3) 0 % (0-3) Basophils (%) (Auto) 0 % (0-3) 0 % (0-3) Neutrophils # (Auto) 9.9 x10^3uL (1.8-7.7) 12.5 x10^3uL (1.8-7.7) Lymphocytes # (Auto) 1.3 x10^3/uL (1.0-4.8) 0.5 x10^3/uL (1.0-4.8) Monocytes # (Auto) 0.9 x10^3/uL (0.0-1.1) 0.4 x10^3/uL (0.0-1.1) Eosinophils # (Auto) 0.1 x10^3/uL (0.0-0.7) 0.0 x10^3/uL (0.0-0.7) Basophils # (Auto) 0.1 x10^3/uL (0.0-0.2) 0.0 x10^3/uL (0.0-0.2) Sodium Level 137 mmol/L (136-145) 138 mmol/L (136-145) Potassium Level 3.8 mmol/L (3.5-5.1) 3.6 mmol/L (3.5-5.1) Chloride Level 102 mmol/L (98-107) 103 mmol/L (98-107) Carbon Dioxide Level 25 mmol/L (21-32) 24 mmol/L (21-32) Anion Gap 10 (6-14) 11 (6-14) Blood Urea Nitrogen 16 mg/dL (7-20) 11 mg/dL (7-20) Creatinine 0.8 mg/dL (0.6-1.0) 0.8 mg/dL (0.6-1.0) Estimated GFR (Cockcroft-Gault) 78.3 78.3 BUN/Creatinine Ratio 20 (6-20) Glucose Level 121 mg/dL (70-99) 132 mg/dL (70-99) Calcium Level 9.5 mg/dL (8.5-10.1) 8.3 mg/dL (8.5-10.1) Total Bilirubin 0.5 mg/dL (0.2-1.0) Aspartate Amino Transf (AST/SGOT) 17 U/L (15-37) Alanine Aminotransferase (ALT/SGPT) 22 U/L (14-59) Alkaline Phosphatase 86 U/L (46-116) Total Protein 8.4 g/dL (6.4-8.2) Albumin 3.6 g/dL (3.4-5.0) Albumin/Globulin Ratio 0.8 (1.0-1.7) Lipase 118 U/L (73-393) Laboratory Tests Test 04/28/18 03:50 White Blood Count 13.4 x10^3/uL (4.0-11.0) Red Blood Count 3.96 x10^6/uL (3.50-5.40) Hemoglobin 12.1 g/dL (12.0-15.5) Hematocrit 35.1 % (36.0-47.0) Mean Corpuscular Volume 89 fL (79-100) Mean Corpuscular Hemoglobin 31 pg (25-35) Mean Corpuscular Hemoglobin Concent 35 g/dL (31-37) Red Cell Distribution Width 12.5 % (11.5-14.5) Platelet Count 201 x10^3/uL (140-400) Neutrophils (%) (Auto) 94 % (31-73) Lymphocytes (%) (Auto) 4 % (24-48) Monocytes (%) (Auto) 3 % (0-9) Eosinophils (%) (Auto) 0 % (0-3) Basophils (%) (Auto) 0 % (0-3) Neutrophils # (Auto) 12.5 x10^3uL (1.8-7.7) Lymphocytes # (Auto) 0.5 x10^3/uL (1.0-4.8) Monocytes # (Auto) 0.4 x10^3/uL (0.0-1.1) Eosinophils # (Auto) 0.0 x10^3/uL (0.0-0.7) Basophils # (Auto) 0.0 x10^3/uL (0.0-0.2) Sodium Level 138 mmol/L (136-145) Potassium Level 3.6 mmol/L (3.5-5.1) Chloride Level 103 mmol/L (98-107) Carbon Dioxide Level 24 mmol/L (21-32) Anion Gap 11 (6-14) Blood Urea Nitrogen 11 mg/dL (7-20) Creatinine 0.8 mg/dL (0.6-1.0) Estimated GFR (Cockcroft-Gault) 78.3 Glucose Level 132 mg/dL (70-99) Calcium Level 8.3 mg/dL (8.5-10.1) Medications Current Medications Sodium Chloride 1,000 ml @ 1,000 mls/hr Q1H IV Last administered on at 03:26; Start 04/27/18 at 03:30; Stop 04/27/18 at 04:29; Status DC Fentanyl Citrate (Fentanyl 2ml Vial) 50 mcg 1X ONCE IV Last administered on 03:26; Start 04/27/18 at 03:30; Stop 04/27/18 at 03:31; Status DC Ondansetron HCl (Zofran) 4 mg 1X ONCE IV Last administered on 04/27/18 03:26 ; Start 04/27/18 at 03:30; Stop 04/27/18 at 03:31; Status DC Hydromorphone HCl (Dilaudid) 1 mg 1X ONCE IV Last administered on 04/27/18at 04:45; Start 04/27/18 at 05:00; Stop 04/27/18 at 05:01; Status DC Ondansetron HCl (Zofran) 4 mg 1X ONCE IV Last administered on 04/27/18at 04:46 ; Start 04/27/18 at 05:00; Stop 04/27/18 at 05:01; Status DC Iohexol (Omnipaque 300 Mg/ml) 75 ml 1X ONCE IV Last administered on at 04:52; Start 04/27/18 at 05:00; Stop 04/27/18 at 05:01; Status DC Info (CONTRAST GIVEN -- Rx MONITORING) 1 each PRN DAILY PRN MC SEE COMMENTS; Start 04/27/18 at 04:45; Stop 04/29/18 at 04:44 Prochlorperazine Edisylate (Compazine) 10 mg 1X ONCE IV Last administered on 04/27/18at 06:13; Start 04/27/18 at 06:00; Stop 04/27/18 at 06:01; Status DC Ceftriaxone Sodium 50 ml @ 100 mls/hr 1X ONCE IV Last administered on at 06:14; Start 04/27/18 at 06:00; Stop 04/27/18 at 06:29; Status DC Metronidazole 100 ml @ 100 mls/hr 1X ONCE IV Last administered on 04/27/18at 06:14; Start 04/27/18 at 06:00; Stop 04/27/18 at 06:59; Status DC Ondansetron HCl (Zofran) 4 mg PRN Q8HRS PRN IV NAUSEA/VOMITING 1ST CHOICE Last administered on 04/27/18at 09:14; Start 04/27/18 at 06:00; Stop 04/27/18 at 09 :43; Status DC Morphine Sulfate (Morphine Sulfate) 4 mg PRN Q2HR PRN IV SEVERE PAIN Last administered on 04/27/18at 09:06; Start 04/27/18 at 06:00; Stop 04/27/18 at 09 :43; Status DC Hydromorphone HCl (Dilaudid) 1 mg 1X ONCE IV Last administered on 04/27/18at 06:13; Start 04/27/18 at 06:15; Stop 04/27/18 at 06:16; Status DC Acetaminophen (Tylenol) 650 mg PRN Q6HRS PRN PO FEVER Last administered on at 09:33; Start 04/27/18 at 09:45 Ondansetron HCl (Zofran) 4 mg PRN Q6HRS PRN IV NAUSEA/VOMITING; Start at 09:45; Stop 04/27/18 at 22:42; Status DC Morphine Sulfate (Morphine Sulfate) 2 mg PRN Q2HR PRN IV MODERATE TO SEVERE PAIN Last administered on 04/27/18at 20:07; Start 04/27/18 at 09:45 Tramadol HCl (Ultram) 50 mg PRN Q6HRS PRN PO MILD TO MODERATE PAIN; Start at 09:45 Docusate Sodium (Colace) 100 mg PRN DAILY PRN PO CONSTIPATION; Start 04/27/18 at 09:45 Sodium Chloride 1,000 ml @ 100 mls/hr Q10H IV Last administered on 04/27/18at 11:48; Start 04/27/18 at 09:45; Stop 04/27/18 at 22:42; Status DC Ceftriaxone Sodium 1 gm/ Dextrose 50 ml @ 100 mls/hr Q24H IV ; Start 04/27/18 at 09:45; Status UNV Ceftriaxone Sodium (Rocephin) 1 gm Q24H IVP Last administered on 04/28/18at 09: 20; Start 04/28/18 at 08:00 Metronidazole 100 ml @ 100 mls/hr Q8HRS IV Last administered on 04/28/18at 06: 04; Start 04/27/18 at 14:00 Fentanyl Citrate (Fentanyl 2ml Vial) 50 mcg PRN Q2HR PRN IV PAIN Last administered on 04/28/18at 01:16; Start 04/27/18 at 13:15 Prochlorperazine Edisylate (Compazine) 10 mg PRN Q6HRS PRN IV NAUSEA/VOMITING Last administered on 04/27/18at 13:17; Start 04/27/18 at 13:15 Cetirizine HCl (ZyrTEC) 10 mg PRN DAILY PRN PO ALLERGIES; Start 04/27/18 at 13 :49 Non-Formulary Medication (Levothyroxine Sodium (Synthroid)) 212 mcg DAILYAC PO ; Start 04/28/18 at 07:30; Status UNV Morphine Sulfate (Morphine Sulfate) 4 mg PRN Q2HR PRN IV PAIN; Start 04/27/18 at 14:00 Acetaminophen/ Hydrocodone Bitart (Lortab 5/325) 1 tab PRN Q4HRS PRN PO SEVERE PAIN; Start 04/27/18 at 14:00; Stop 04/27/18 at 22:41; Status DC Levothyroxine Sodium (Synthroid) 100 mcg DAILY06 PO Last administered on at 06:04; Start 04/28/18 at 06:00 Levothyroxine Sodium (Synthroid) 112 mcg DAILY06 PO Last administered on at 06:04; Start 04/28/18 at 06:00 Propofol 20 ml @ As Directed STK-MED ONCE IV ; Start 04/27/18 at 14:25; Stop 04/27/18 at 14:26; Status DC Lidocaine HCl (Lidocaine Pf 2% Vial) 5 ml STK-MED ONCE .ROUTE ; Start 04/27/18 at 14:25; Stop 04/27/18 at 14:26; Status DC Midazolam HCl (Versed) 2 mg STK-MED ONCE .ROUTE ; Start 04/27/18 at 14:25; Stop 04/27/18 at 14:26; Status DC Fentanyl Citrate (Fentanyl 2ml Vial) 100 mcg STK-MED ONCE .ROUTE ; Start at 14:25; Stop 04/27/18 at 14:26; Status DC Rocuronium [place] (Zemuron) 50 mg STK-MED ONCE .ROUTE ; Start 04/27/18 at 14: 25; Stop 04/27/18 at 14:26; Status DC Dexamethasone Sodium Phosphate (Decadron) 20 mg STK-MED ONCE .ROUTE ; Start at 14:27; Stop 04/27/18 at 14:28; Status DC Ondansetron HCl (Zofran) 4 mg STK-MED ONCE .ROUTE ; Start 04/27/18 at 14:27; Stop 04/27/18 at 14:28; Status DC Ondansetron HCl (Zofran) 4 mg PRN Q6HRS PRN IV NAUSEA/VOMITING; Start at 19:30; Stop 04/28/18 at 02:00; Status DC Fentanyl Citrate (Fentanyl 2ml Vial) 25 mcg PRN Q5MIN PRN IV MILD PAIN Last administered on 04/27/18at 23:29; Start 04/27/18 at 19:30; Stop 04/28/18 at 01 :00; Status DC Fentanyl Citrate (Fentanyl 2ml Vial) 50 mcg PRN Q5MIN PRN IV MODERATE TO SEVERE PAIN; Start 04/27/18 at 19:30; Stop 04/28/18 at 01:00; Status DC Morphine Sulfate (Morphine Sulfate) 1 mg PRN Q10MIN PRN IV SEVERE PAIN; Start 04/27/18 at 19:30; Stop 04/28/18 at 01:00; Status DC Ringer's Solution 1,000 ml @ 30 mls/hr Q24H IV ; Start 04/27/18 at 19:17; Stop 04/28/18 at 07:16; Status DC Lidocaine HCl (Xylocaine-Mpf 1% 2ml Vial) 2 ml 1X PRN PRN ID IV START; Start 04/27/18 at 19:30; Stop 04/28/18 at 01:00; Status DC Hydromorphone HCl (Dilaudid) 0.5 mg PRN Q10MIN PRN IV SEV PAIN, Second choice; Start 04/27/18 at 19:30; Stop 04/28/18 at 01:00; Status DC Prochlorperazine Edisylate (Compazine) 5 mg PACU PRN PRN IV NAUSEA, MRX1 Last administered on 04/27/18at 23:14; Start 04/27/18 at 19:30; Stop 04/28/18 at 01 :00; Status DC Bupivacaine HCl/ Epinephrine Bitart (Sensorcain-Mpf Epi 0.5%-1:[id number]) 30 ml STK -MED ONCE .ROUTE Last administered on 04/27/18at 20:55; Start 04/27/18 at 18: 44; Stop 04/27/18 at 19:45; Status DC Fentanyl Citrate (Fentanyl 2ml Vial) 100 mcg STK-MED ONCE .ROUTE ; Start at 19:47; Stop 04/27/18 at 19:48; Status DC Ketorolac Tromethamine (Toradol For Or Only) 30 mg STK-MED ONCE INJ ; Start at 19:50; Stop 04/27/18 at 19:51; Status DC Sevoflurane (Ultane) 30 ml STK-MED ONCE IH ; Start 04/27/18 at 19:50; Stop at 19:51; Status DC Ondansetron HCl (Zofran) 4 mg STK-MED ONCE .ROUTE ; Start 04/27/18 at 19:50; Stop 04/27/18 at 19:51; Status DC Phenylephrine HCl (PHENYLEPHRINE in 0.9% NACL PF) 1 mg STK-MED ONCE IV ; Start 04/27/18 at 20:42; Stop 04/27/18 at 20:43; Status DC Glycopyrrolate (Robinul) 1 mg STK-MED ONCE .ROUTE ; Start 04/27/18 at 21:17; Stop 04/27/18 at 21:18; Status DC Neostigmine Methylsulfate (Neostigmine Methylsulfate) 5 mg STK-MED ONCE .ROUTE ; Start 04/27/18 at 21:17; Stop 04/27/18 at 21:18; Status DC Methylene Blue (Methylene Blue) 1 ml STK-MED ONCE .ROUTE ; Start 04/27/18 at 20 :59; Stop 04/27/18 at 21:59; Status DC Enoxaparin Sodium (Lovenox 40mg Syringe) 40 mg Q24H SQ Last administered on at 09:20; Start 04/28/18 at 09:00 Sodium Chloride (Normal Saline Flush) 3 ml QSHIFT PRN IV AFTER MEDS AND BLOOD DRAWS; Start 04/27/18 at 22:45 Potassium Chloride/Sodium Chloride 1,000 ml @ 100 mls/hr Q10H IV Last administered on 04/28/18at 09:19; Start 04/27/18 at 23:00 Acetaminophen/ Hydrocodone Bitart (Lortab 5/325) 1 tab PRN Q4HRS PRN PO MILD PAIN Last administered on 04/28/18at 06:38; Start 04/27/18 at 22:45 Docusate Sodium (Colace) 100 mg BID PO ; Start 04/28/18 at 09:00 Ondansetron HCl (Zofran) 4 mg PRN Q6HRS PRN IV NAUESA, 1ST CHOICE; Start 04/27 at 22:45 Prochlorperazine Edisylate (Compazine) 5 mg 1X ONCE IV ; Start 04/27/18 at 23: 30; Stop 04/27/18 at 23:31; Status DC Active Scripts Active Reported [place] Allergy (Fexofenadine Hcl) 180 Mg Tablet 1 Tab PO PRN DAILY PRN Synthroid (Levothyroxine Sodium) 200 Mcg Tablet 212 Mcg PO DAILYAC Vitals/I & O Vital Sign - Last 24 Hours 04/27/18 04/27/18 04/27/18 04/27/18 13:17 15:00 15:50 17:54 Pulse 114 Resp 16 18 16 16 B/P (MAP) 141/75 (97) Pulse Ox 94 O2 Delivery Room Air Nasal Cannula Room Air Room Air O2 Flow Rate 2.0 04/27/18 04/27/18 04/27/18 04/27/18 19:15 20:00 20:07 22:45 Temp 98.1 98.1 Pulse 102 Resp 20 18 B/P (MAP) 116/60 (78) Pulse Ox 96 O2 Delivery Room Air Mask Room Air Mask O2 Flow Rate 12 04/27/18 04/27/18 04/27/18 04/27/18 22:47 23:00 23:15 23:16 Temp 98.7 98.9 98.7 98.9 Pulse 90 91 73 Resp 12 23 16 17 B/P (MAP) 106/54 108/72 114/69 Pulse Ox 97 96 92 95 O2 Delivery Simple Mask Nasal Cannula Nasal Cannula Nasal Cannula O2 Flow Rate 12 2 2 2.0 04/27/18 04/27/18 04/28/18 04/28/18 23:29 23:45 00:00 00:15 Temp 98.1 98.1 Pulse 71 72 67 Resp 16 20 20 20 B/P (MAP) 99/66 (77) 103/67 (79) 101/68 (79) Pulse Ox 97 95 95 94 O2 Delivery Nasal Cannula Nasal Cannula Nasal Cannula Nasal Cannula O2 Flow Rate 4.0 4.0 4.0 4.0 04/28/18 04/28/18 04/28/18 04/28/18 00:30 01:00 01:16 01:30 Pulse 73 70 70 Resp 18 18 16 18 B/P (MAP) 101/66 (78) 101/64 (76) 88/44 (59) Pulse Ox 95 96 97 96 O2 Delivery Nasal Cannula Nasal Cannula Nasal Cannula Nasal Cannula O2 Flow Rate 4.0 4.0 3.0 4.0 04/28/18 04/28/18 04/28/18 04/28/18 01:52 02:30 03:30 06:38 Temp 98.1 98.1 Pulse 82 69 Resp 18 18 18 18 B/P (MAP) 100/57 (71) 99/56 (70) Pulse Ox 94 96 O2 Delivery Room Air Nasal Cannula Nasal Cannula Room Air O2 Flow Rate 4.0 4.0 04/28/18 04/28/18 07:00 11:00 Temp 97.9 98.2 97.9 98.2 Pulse 72 73 Resp 18 18 B/P (MAP) 108/49 (68) 112/66 (81) Pulse Ox 93 93 O2 Delivery Nasal Cannula Nasal Cannula O2 Flow Rate 4.0 4.0 Intake and Output 04/27/18 04/27/18 04/28/18 15:00 23:00 07:00 Intake Total 100 ml Output Total 0 ml 0 ml Balance 0 ml 0 ml 100 ml BONITA MCCOLLUM MD Apr 28, 2018 12:46
[2018-04-28 13:41] LABS: % LYMPHS 4 % (24-48); % MONOS 4 % (0-10); % SEGS 92 % (35-66); PLT ESTIMATE ADEQUATE (ADEQUATE)
[2018-04-29 03:00] VITALS: BP 100/56
[2018-04-29] MEDS: traMADol 50 MG TABLET PO PRN ×2 (04:56→14:16)
[2018-04-29] MEDS: ACETAMINOPHEN 325 MG TABLET. PO PRN (04:56)
[2018-04-29] MEDS ORDERED: LEVOTHYROXINE 137 MCG TABLET PO SCH (06:00)
[2018-04-29] MEDS: POTASSIUM CL 20MEQ-0.45% NACL 1,000 ML IV SCH (06:17)
[2018-04-29 07:00] VITALS: BP 109/40
[2018-04-29] MEDS: cefTRIAXone IV Push 1 GM VIAL. IVP SCH (08:00)
[2018-04-29 09:09] LABS: BASO % 0 % (0-3); EOS % 0 % (0-3); HEMATOCRIT 32.1 % (36.0-47.0); HEMOGLOBIN 11.1 g/dL (12.0-15.5); LYMPH % 12 % (24-48); MEAN CORPUSCULAR HEMOGLOBIN 31 pg (25-35); MEAN CORPUSCULAR HGB CONC 35 g/dL (31-37); MEAN CORPUSCULAR VOLUME 89 fL (79-100); MONO # 0.4 x10^3/uL (0.0-1.1); MONO % 5 % (0-9); NEUT # 6.5 x10^3uL (1.8-7.7); NEUT % 82 % (31-73); PLATELET COUNT 189 x10^3/uL (140-400); RED BLOOD COUNT 3.61 x10^6/uL (3.50-5.40); RED CELL DISTRIBUTION WIDTH 13.1 % (11.5-14.5); WHITE BLOOD COUNT 7.9 x10^3/uL (4.0-11.0)
[2018-04-29 09:32] LABS: CALCIUM 8.3 mg/dL (8.5-10.1); CREATININE 0.8 mg/dL (0.6-1.0); GFR 78.3; POTASSIUM 3.2 mmol/L (3.5-5.1)
[2018-04-29] MEDS: HYDROcodone/APAP 5/325MG 1 TAB TABLET PO PRN ×3 (09:58→13:35)
[2018-04-29] MEDS: ENOXAPARIN 40 MG/0.4 ML SYRINGE. SQ SCH (09:58)
[2018-04-29] MEDS: DOCUSATE SODIUM 100 MG CAPSULE. PO SCH (09:58)
[2018-04-29] MEDS ORDERED: CIPR250T30 PO (10:14)
[2018-04-29] MEDS ORDERED: HYDR-2758 PO (10:14)
[2018-04-29] MEDS ORDERED: METR500T PO (10:14)
[2018-04-29] MEDS ORDERED: POTASSIUM CHLORIDE 20 MEQ TABLET.ER. PO ONE (11:00)
[2018-04-29] MEDS ORDERED: CIPROFLOXACIN HCL 250 MG TABLET. PO SCH (11:00)
[2018-04-29 11:35] VITALS: BP 99/45
--- NOTE | 2018-04-29 12:44 | PDOC3 ---
Discharge Summary [facility] Date of Admission: Apr 27, 2018 Discharge Date: Apr 29, 2018 Admitting Diagnosis abd pain with acute apendicitis s/p lap appendectomy for perforation local peritonitis sepsis hypothyroidism morbid obesity Final Diagnosis CONSULTS neena Brief Hospital Course Patient is a 42-year-old female who presents with complaint of midline abdominal pain that started on Friday. Pt started to have lower abd pain on Friday, felt it was "gas". The pain in intermittent, severe, 10/10, radiating to back, with N/V yesterday, vomited green liquid. BM normal to her. Pt came to ER since the pain was getting worse. CT showed acute appendicities. no fever, chills, cough, sob. Pt got lap appendectomy, was found appendicitis with perforation, local peritonitis. WBC higher to 13 from 12 post op. today back to normal. pt feels good today, eats well, has flatus. dc home. dc time 35min. clean sx wound General: Alert, Oriented X3, Cooperative, No acute distress Heart: Regular rate, Normal S1, Normal S2, No murmurs Lungs: Clear Abdomen: Soft, Other (dressings dry, deminished bs, mild tenderness) Extremities: No clubbing, No cyanosis Skin: No rashes, No breakdown Disposition home CONDITION AT DISCHARGE: Improved Scheduled Ciprofloxacin Hcl (Cipro), 500 MG PO BID Levothyroxine Sodium (Synthroid), 137 MCG PO DAILYAC, (Reported) Metronidazole (Flagyl), 500 MG PO Q12HR Scheduled PRN Fexofenadine Hcl (Flores Allergy), 1 TAB PO PRN DAILY PRN for ALLERGIES, ( Reported) Hydrocodone Bit/Acetaminophen (Hydrocodone-Apap 5-325 ), 1 TAB PO PRN Q4HRS PRN for MILD PAIN BONITA MCCOLLUM MD Apr 29, 2018 12:44
--- NOTE | 2018-04-29 13:04 | PDOC ---
SURGICAL PROGRESS NOTE Subjective Pt with c/o fatigue, but feeling better, cesar PO, pain controlled Vital Signs Vital Signs Date Time Temp Pulse Resp B/P (MAP) Pulse Ox O2 Delivery O2 Flow Rate FiO2 04/29/18 11:35 98.1 69 16 99/45 (63) 96 Room Air 98.1 04/29/18 03:00 4.0 I&O Intake and Output 04/29/18 07:00 Intake Total 720 ml Balance 720 ml Intake Oral 720 ml # Voids 106 General: Alert, Oriented X3, Cooperative, No acute distress Abdomen: Soft, No tenderness, Other (dressing c/d/i) Labs Laboratory Tests Test 04/28/18 03:50 04/29/18 08:40 White Blood Count 13.4 x10^3/uL (4.0-11.0) 7.9 x10^3/uL (4.0-11.0) Red Blood Count 3.96 x10^6/uL (3.50-5.40) 3.61 x10^6/uL (3.50-5.40) Hemoglobin 12.1 g/dL (12.0-15.5) 11.1 g/dL (12.0-15.5) Hematocrit 35.1 % (36.0-47.0) 32.1 % (36.0-47.0) Mean Corpuscular Volume 89 fL (79-100) 89 fL (79-100) Mean Corpuscular Hemoglobin 31 pg (25-35) 31 pg (25-35) Mean Corpuscular Hemoglobin Concent 35 g/dL (31-37) 35 g/dL (31-37) Red Cell Distribution Width 12.5 % (11.5-14.5) 13.1 % (11.5-14.5) Platelet Count 201 x10^3/uL (140-400) 189 x10^3/uL (140-400) Neutrophils (%) (Auto) 94 % (31-73) 82 % (31-73) Lymphocytes (%) (Auto) 4 % (24-48) 12 % (24-48) Monocytes (%) (Auto) 3 % (0-9) 5 % (0-9) Eosinophils (%) (Auto) 0 % (0-3) 0 % (0-3) Basophils (%) (Auto) 0 % (0-3) 0 % (0-3) Neutrophils # (Auto) 12.5 x10^3uL (1.8-7.7) 6.5 x10^3uL (1.8-7.7) Lymphocytes # (Auto) 0.5 x10^3/uL (1.0-4.8) 1.0 x10^3/uL (1.0-4.8) Monocytes # (Auto) 0.4 x10^3/uL (0.0-1.1) 0.4 x10^3/uL (0.0-1.1) Eosinophils # (Auto) 0.0 x10^3/uL (0.0-0.7) 0.0 x10^3/uL (0.0-0.7) Basophils # (Auto) 0.0 x10^3/uL (0.0-0.2) 0.0 x10^3/uL (0.0-0.2) Segmented Neutrophils % 92 % (35-66) Lymphocytes % 4 % (24-48) Monocytes % 4 % (0-10) Platelet Estimate Adequate (ADEQUATE) Sodium Level 138 mmol/L (136-145) 142 mmol/L (136-145) Potassium Level 3.6 mmol/L (3.5-5.1) 3.2 mmol/L (3.5-5.1) Chloride Level 103 mmol/L (98-107) 107 mmol/L (98-107) Carbon Dioxide Level 24 mmol/L (21-32) 26 mmol/L (21-32) Anion Gap 11 (6-14) 9 (6-14) Blood Urea Nitrogen 11 mg/dL (7-20) 15 mg/dL (7-20) Creatinine 0.8 mg/dL (0.6-1.0) 0.8 mg/dL (0.6-1.0) Estimated GFR (Cockcroft-Gault) 78.3 78.3 Glucose Level 132 mg/dL (70-99) 125 mg/dL (70-99) Calcium Level 8.3 mg/dL (8.5-10.1) 8.3 mg/dL (8.5-10.1) Laboratory Tests Test 04/29/18 08:40 White Blood Count 7.9 x10^3/uL (4.0-11.0) Red Blood Count 3.61 x10^6/uL (3.50-5.40) Hemoglobin 11.1 g/dL (12.0-15.5) Hematocrit 32.1 % (36.0-47.0) Mean Corpuscular Volume 89 fL (79-100) Mean Corpuscular Hemoglobin 31 pg (25-35) Mean Corpuscular Hemoglobin Concent 35 g/dL (31-37) Red Cell Distribution Width 13.1 % (11.5-14.5) Platelet Count 189 x10^3/uL (140-400) Neutrophils (%) (Auto) 82 % (31-73) Lymphocytes (%) (Auto) 12 % (24-48) Monocytes (%) (Auto) 5 % (0-9) Eosinophils (%) (Auto) 0 % (0-3) Basophils (%) (Auto) 0 % (0-3) Neutrophils # (Auto) 6.5 x10^3uL (1.8-7.7) Lymphocytes # (Auto) 1.0 x10^3/uL (1.0-4.8) Monocytes # (Auto) 0.4 x10^3/uL (0.0-1.1) Eosinophils # (Auto) 0.0 x10^3/uL (0.0-0.7) Basophils # (Auto) 0.0 x10^3/uL (0.0-0.2) Sodium Level 142 mmol/L (136-145) Potassium Level 3.2 mmol/L (3.5-5.1) Chloride Level 107 mmol/L (98-107) Carbon Dioxide Level 26 mmol/L (21-32) Anion Gap 9 (6-14) Blood Urea Nitrogen 15 mg/dL (7-20) Creatinine 0.8 mg/dL (0.6-1.0) Estimated GFR (Cockcroft-Gault) 78.3 Glucose Level 125 mg/dL (70-99) Calcium Level 8.3 mg/dL (8.5-10.1) Problem List Problems Medical Problems: (1) Acute appendicitis Status: Acute Assessment/Plan s/p lap appendectomy OK to d/c home on abx. Script written for shauna and giovanni f/u in two weeks LUCIANA HOPKINS MD Apr 29, 2018 13:04
[2018-04-29] MEDS ORDERED: LACTOBACILLUS RHAMNOSUS GG 1 CAPSULE. PO SCH (21:00)
[2018-04-29] MEDS ORDERED: metroNIDAZOLE 500 MG TABLET PO SCH (21:00)
--- NOTE | 2018-04-30 10:08 | PATHOLOGY ---
[facility] Accession Number: [id number] . 01 Material submitted: . APPENDIX . 01 Clinical history: . Acute appendicitis . 02 Diagnosis: Appendix, laparoscopic appendectomy: - Acute suppurative and hemorrhagic appendicitis with focal perforation. - Reactive changes of mesoappendiceal lymph node. 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 02 Comment: There is no evidence of malignancy. . 02 Electronically signed: . Colin Horvath MD, Pathologist NPI- [id number] . 01 Gross description: . The specimen is received in formalin, labeled "Waldeck, Gifty, appendix", is an enlarged necrotic appendix 11.0 cm in length and up to 1.0 cm in diameter with abundantly attached mesoappendix measuring 10.5 x 2.0 x 1.4 cm. The serosa is hemorrhagic and diffusely covered by martin-white exudate and has a possible perforation 2.0 cm from the proximal resection margin measuring 1.0 x 0.8 cm (inked blue). The proximal resection margin is closed by a linear staple line measuring 1.2 cm in length with an average 0.1 cm in width. The staple line is removed and adjacent serosa is inked black. At the proximal resection margin there is a 0.7 x 0.7 x 0.6 cm possible lymph node. The lumen is dilated and filled with hemorrhagic soft material and no discrete fecalith. The wall measures up to 0.3 cm thick. The martin-white exudate extends onto the mesoappendix. 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 Proximal resection margin and possible lymph node bisected A2. Perforation, longitudinal section A3. Cross section of appendix A4. Tip, longitudinal section (SWS; 04/28/2018) SHS/SHS . 02 Pathologist provided ICD-10: K35.80 . 02 CPT . 655386 Specimen Comment: A courtesy copy of this report has been sent to Specimen Comment: [phone], , . Specimen Comment: Report sent to , DR PATRICK / DR HOFF Specimen Comment: A duplicate report has been generated due to demographic updates. Performed at: [facility] [address] [id number] MD Adams Montes MD Phone: [phone] Performed at: [facility] [address] [place], [place] [id number] MD Colin Horvath MD Phone: [phone]
== END 2018-04-29 14:30 | disposition home or self-care (01) | DRG 853 ==
LOC: ER 01:56 → 4 NORTH 05:56
PROVIDERS: ADMIT Internal Medicine; ATTEND Internal Medicine
PROC: 0DTJ4ZZ Resection of Appendix, Percutaneous Endoscopic Approach (ICD-10-PCS; principal; 2018-04-27 15:30)
DX: A41.9 Sepsis, unspecified organism (principal); K35.32 Acute appendicitis with perforation, localized peritonitis, and gangrene, without abscess; Z68.42 Body mass index [BMI] 45.0-49.9, adult; E03.9 Hypothyroidism, unspecified; E66.01 Morbid (severe) obesity due to excess calories; E86.0 Dehydration; K59.00 Constipation, unspecified; Z82.49 Family history of ischemic heart disease and other diseases of the circulatory system; Z88.0 Allergy status to penicillin
CPT/HCPCS: 36415; 74177; 80048; 80053; 81001; 81025; 83690; 85007; 85025; 88304; 96374; 96375; 96376; J0690; J0696; J0780; J1100; J1170; J1650; J1885; J2001; J2250; J2270; J2370; J2405; J2704; J2710; J3010; J3490; J7030; J7120; Q9967; Q9968; 99285-25